=== PATIENT | male | born 1995 | race African-American/Black ===

== ENCOUNTER 2017-09-16 16:24 | Emergency (ER) | payer MEDICAID ==
[~2017-09-16] VITALS: Ht 177.8 cm; Wt 83.9 kg
[~2017-09-16 16:24] MED LIST: IBUPROFEN800 MG ORAL
[2017-09-16] MEDS ORDERED: NKM (16:29)
--- NOTE | 2017-09-16 16:41 | Emergency Room Report ---
History of Present Illness General Chief Complaint: Sore Throat Source: Patient Present Illness HPI 22-year-old male with no significant past medical history he had complaining of 2 days of sore throat. Denies cough, SOB, fever/chills, ear pain, abdominal pain.denies recent travel, sick contacts. Patient has been taking Advil with some improvement patient rates his throat pain 5 out of 10 Allergies: Coded Allergies: NO KNOWN DRUG ALLERGIES (Unverified Allergy, Unknown, 01/18/14) Patient History Past Medical History: see triage record Past Surgical History: none Pertinent Family History: none Immunizations: UTD Reviewed Nursing Documentation: PMH: Agreed; PSxH: Agreed Nursing Documentation-PMH Past Medical History: No Stated History Review of Systems All Other Systems: negative except mentioned in HPI Physical Exam Vital Signs Date Time Temp Pulse Resp B/P (MAP) Pulse Ox O2 Delivery O2 Flow Rate FiO2 09/16/17 16:28 98.3 69 18 130/79 95 Room Air 98.2 Sp02 EP Interpretation: reviewed, normal General Appearance: normal inspection, well appearing, no apparent distress, alert Head: normocephalic Eyes: bilateral eye normal inspection, bilateral eye PERRL ENT: hearing grossly normal, no angioedema, normal voice, TMs + canals normal, uvula midline, moist mucus membranes, tonsillar swelling - 2+ bilaterally, tonsillar exudate - bilaterally Neck: normal inspection, full range of motion, supple Respiratory: normal inspection, chest non-tender, lungs clear, normal breath sounds, no rhonchi, no respiratory distress, no retraction, no accessory muscle use Cardiovascular #1: normal inspection, normal peripheral pulses, regular rate, rhythm, no edema, no gallop, no murmur Gastrointestinal: normal inspection, soft Rectal: deferred Genitourinary: deferred Musculoskeletal: normal inspection, back normal Neurologic: normal inspection, alert Psychiatric: normal inspection Skin: normal inspection, normal color, no rash Lymphatic: adenopathy - ant cervical Medical Decision Making PA Attestation all orders, diagnosis, treatment plans were reviewed and discussed with my supervising physician Dr. Bradley Diagnostic Impression: Primary Impression: Strep pharyngitis Additional Impression: Sore throat ER Course 22-year-old male with no significant past medical history he had complaining of 2 days of sore throat. Denies cough, SOB, fever/chills, ear pain, abdominal pain.denies recent travel, sick contacts. Patient has been taking Advil with some improvement patient rates his throat pain 5 out of 10 Ddx considered but are not limited to strep pharyngitis, URI, tonsilitis Vital signs: are WNL, pt. is afebrile H&PE are most consistent with strep pharyngitis ORDERS: amoxicillin 500mg bid x7d ED INTERVENTIONS: None required at this time. DISCHARGE: At this time pt. is stable for d/c to home. Will provide printed patient care instructions, and any necessary prescriptions. Care plan and follow up instructions have been discussed with the patient prior to discharge. Last Vital Signs Date Time Temp Pulse Resp B/P (MAP) Pulse Ox O2 Delivery O2 Flow Rate FiO2 09/16/17 16:28 98.3 69 18 130/79 95 Room Air 98.2 Disposition: HOME, SELF-CARE Condition: Stable Scripts Amoxicillin* (AMOXIL*) 500 Mg Capsule 500 MG ORAL EVERY 12 HOURS for 7 Days, #14 CAP Prov: Ko Bah 09/16/17 Patient Instructions: Sore Throat, Strep Throat Additional Instructions: take medication as directed, avoid greesy, spicy food. rest and hydrate. ED precautions Ko Bah Sep 16, 2017 16:41
[2017-09-16] MEDS ORDERED: AMOXICILLIN500 MG ORAL (16:42)
[2017-09-16 16:49] VITALS: BP 130/79
[2017-09-16 16:50] VITALS: BP 130/79
== END 2017-09-16 16:50 | disposition home or self-care (01) ==
LOC: EMR 16:40
DX: J02.0 Streptococcal pharyngitis (principal)
CPT/HCPCS: 99283